=== PATIENT | female | born 1985 | race Hispanic/Latino ===

== ENCOUNTER 2020-04-15 16:07 | Inpatient (IN) | payer BC ==
[~2020-04-15] VITALS: Ht 149.9 cm; Wt 81.6 kg
[2020-04-15] MEDS ORDERED: ONDANSETRON HCL INJ 2MG/ML 2ML 2 MG/ML VIAL IV STA (16:15)
[2020-04-15] MEDS ORDERED: PANTOPRAZOLE 40 MG 10ML VIAL IV STA (16:15)
[2020-04-15] MEDS ORDERED: SODIUM CHLORIDE 0.9% 1000ML 1,000 ML IV STA (16:15)
[2020-04-15] MEDS ORDERED: HYDROMORPHONE 1MG/1ML INJ IV STA (16:15)
[2020-04-15 16:40] LABS: BASOPHILS # (AUTO) 0.1 (0.0-0.1); BASOPHILS % 0.3 % (0.0-1.0); EOSINOPHILS # (AUTO) 0.1 (0.0-0.4); EOSINOPHILS % 0.5 % (0.0-6.0); HEMATOCRIT 34.9 % (34.2-44.1); LYMPHOCYTES # (AUTO) 5.4 (1.0-3.2); LYMPHOCYTES % 24.8 % (18.0-39.1); MEAN CORPUSCULAR VOLUME 70.5 fL (81-99); MONOCYTES # (AUTO) 0.8 (0.2-0.8); MONOCYTES % 3.5 % (4.4-11.3); NEUTROPHILS # (AUTO) 15.2 (2.1-6.9); NEUTROPHILS % 70.1 % (38.7-80.0); PLATELET COUNT 368 x10e3/uL (140-360); RED BLOOD COUNT 4.95 x10e6/uL (3.6-5.1); RED CELL DISTRIBUTION WIDTH 17.1 % (11.7-14.4)
[2020-04-15 17:15] LABS: ALBUMIN 3.8 g/dL (3.5-5.0); ALBUMIN/GLOBULIN RATIO 0.5 (0.8-2.0); ALKALINE PHOSPHATASE 57 IU/L (40-150); AMYLASE 148 U/L (25-125); BLOOD UREA NITROGEN 5 mg/dL (7-26); BUN/CREATININE RATIO 7 (6-25); CALCIUM 8.7 mg/dL (8.4-10.2); CHLORIDE 95 mmol/L (98-107); CREATININE, SERUM 0.75 mg/dL (0.57-1.11); EST GLOMERULAR FILTRATION RATE > 60 ML/MIN (60-); GLUCOSE 249 mg/dL (74-118); LIPASE 508 U/L (8-78); MAGNESIUM 1.5 MG/DL (1.3-2.1); POTASSIUM 3.4 mmol/L (3.5-5.1); SODIUM 125 mmol/L (136-145)
[2020-04-15 17:31] LABS: CHOL/HDL RATIO 25.4 (3.0-3.6); CHOLESTEROL 407 MD/DL (0-199); HDL CHOLESTEROL 16 MG/DL (40-60)
[2020-04-15 17:39] LABS: TRIGLYCERIDES 5107 MG/DL (0-149)
[2020-04-15 17:41] LABS: ALANINE AMINOTRANSFERASE 54 IU/L (0-55)
[2020-04-15 17:53] LABS: ANION GAP 17.4 mmol/L (8-16); CARBON DIOXIDE 16 mmol/L (22-29)
[2020-04-15] MEDS ORDERED: SODIUM CHLORIDE 0.9% 50ML 50 ML ONE (18:25)
[2020-04-15] MEDS ORDERED: IOPAMIDOL 370 MG/ML 200 ML INFUS..BTL INJ ONE (18:26)
[2020-04-15 20:40] LABS: HEMOGLOBIN 10.9 g/dL (12.0-16.0)
[2020-04-15 20:41] LABS: MEAN CORPUSCULAR HEMOGLOBIN 21.8 pg (28-32)
[2020-04-15] MEDS ORDERED: KETOROLAC TROMETHAMINE 30 MG/ML VIAL IV STA (21:59)
[2020-04-15] MEDS ORDERED: PIPER-TAZ 3.375 GM 50 ML IV SCH (22:00)
[2020-04-15] MEDS ORDERED: MAGNESIUM SULF 1GRAM/DEXTROSE 100 ML IV PRN (22:00)
[2020-04-15] MEDS ORDERED: POTASSIUM CHLORIDE 20MEQ/100ML 200 ML IV PRN (22:00)
[2020-04-15] MEDS ORDERED: PIPERACILLIN/TAZOBAC 3.375 GM in SODIUM CHLORIDE 0.9% 50ML 50 ML IV SCH (22:00)
[2020-04-15] MEDS ORDERED: ACETAMINOPHEN 325 MG TAB PO ONE (22:00)
[2020-04-15] MEDS ORDERED: KETOROLAC TROMETHAMINE 30 MG/ML VIAL ONE (22:06)
[2020-04-15] MEDS ORDERED: ACETAMINOPHEN 325 MG TAB ONE (22:08)
[2020-04-15] MEDS ORDERED: PIPERACILLIN/TAZOBAC 3.375 GM VIAL ONE (22:13)
[2020-04-15 22:47] LABS: CREATINE KINASE MB 0.4 ng/mL (0-5.0)
[2020-04-15 23:04] LABS: ANION GAP 13.4 mmol/L (8-16); BLOOD UREA NITROGEN 8 mg/dL (8-26); CARBON DIOXIDE 22 mmol/L (22-32); CHLORIDE 101 mmol/L (101-111); POTASSIUM 4.4 mmol/L (3.6-5.1); SODIUM 132 mmol/L (136-144)
[2020-04-15 23:05] LABS: BUN/CREATININE RATIO 27 (6-25); CREATININE, SERUM 0.3 mg/dL (0.6-1.1); EST GLOMERULAR FILTRATION RATE > 60 ML/MIN (60-); GLUCOSE 275 mg/dL (74-118)
[2020-04-15 23:20] LABS: CALCIUM 8.1 mg/dL (8.4-10.2); MAGNESIUM 1.7 MG/DL (1.3-2.1)
[2020-04-16] MEDS ORDERED: PIPER-TAZ 3.375 GM 50 ML IV SCH
[2020-04-16] MEDS ORDERED: INSULIN REGULAR, HUMAN 100 UNIT/1 ML 3ML VIAL ONE (00:13)
[2020-04-16] MEDS ORDERED: SODIUM CHLORIDE 0.9% 100 ML ONE (00:14)
[2020-04-16] MEDS: SODIUM CHLORIDE 0.9% 1000ML 1,000 ML IV SCH ×3 (00:20→06:08)
[2020-04-16] MEDS: INSULIN REGULAR, HUMAN 3ML VL 300 UNIT in SODIUM CHLORIDE 0.9% 300 ML IV SCH ×4 (00:30→04:31)
[2020-04-16] MEDS ORDERED: ONDANSETRON HCL INJ 2MG/ML 2ML 2 MG/ML VIAL ONE (00:39)
[2020-04-16] MEDS: ONDANSETRON HCL INJ 2MG/ML 2ML 2 MG/ML VIAL IV PRN ×2 (00:40→07:31)
[2020-04-16] MEDS: HYDROMORPHONE 1MG/1ML INJ IV PRN ×6 (00:41→21:20)
[2020-04-16] MEDS ORDERED: FENOFIBRATE 145 MG TAB PO STA (00:50)
[2020-04-16 00:56] LABS: CLARITY,URINE SL CLOUDY (CLEAR); COLOR,URINE YELLOW (YELLOW); LEUKOCYTE ESTERASE ,URINE NEGATIVE (NEGATIVE); NITRITE,URINE NEGATIVE (NEGATIVE); PROTEIN,URINE DIPSTICK 1+ (NEGATIVE)
[2020-04-16 00:57] LABS: KETONES,URINE 3+ (NEGATIVE); URINE UROBILINOGEN 0.2 mg/dL (0.2 - 1)
[2020-04-16 01:12] LABS: BACTERIA,URINE MANY /HPF; EPITHELIAL CELLS,URINE MANY /LPF; WBC,URINE (MAN) 21-50 /HPF (0-5)
[2020-04-16] MEDS ORDERED: KETOROLAC TROMETHAMINE 30 MG/ML VIAL ONE (03:31)
[2020-04-16] MEDS: DEXTROSE 5%/0.45% SOD CHL 1,000 ML IV SCH ×3 (04:30→17:29)
[2020-04-16] MEDS: PIPERACILLIN/TAZOBAC 3.375 GM in SODIUM CHLORIDE 0.9% 50ML 50 ML IV SCH ×4 (04:30→18:20)
[2020-04-16 04:40] LABS: BLOOD UREA NITROGEN 8 mg/dL (7-26); BUN/CREATININE RATIO 11 (6-25); CALCIUM 7.4 mg/dL (8.4-10.2); CARBON DIOXIDE 12 mmol/L (22-29); CHLORIDE 104 mmol/L (98-107); CREATININE, SERUM 0.75 mg/dL (0.57-1.11); EST GLOMERULAR FILTRATION RATE > 60 ML/MIN (60-); GLUCOSE 225 mg/dL (74-118); MAGNESIUM 1.7 MG/DL (1.3-2.1)
[2020-04-16 04:45] LABS: SODIUM 133 mmol/L (136-145)
[2020-04-16 07:58] LABS: ALANINE AMINOTRANSFERASE 42 IU/L (0-55); ALBUMIN/GLOBULIN RATIO 0.8 (0.8-2.0); ALKALINE PHOSPHATASE 54 IU/L (40-150); ANION GAP 17.7 mmol/L (8-16); BLOOD UREA NITROGEN 9 mg/dL (7-26); BUN/CREATININE RATIO 13 (6-25); CALCIUM 7.3 mg/dL (8.4-10.2); CARBON DIOXIDE 15 mmol/L (22-29); CHLORIDE 107 mmol/L (98-107); CREATININE, SERUM 0.68 mg/dL (0.57-1.11); EST GLOMERULAR FILTRATION RATE > 60 ML/MIN (60-); GLUCOSE 181 mg/dL (74-118); SODIUM 137 mmol/L (136-145)
[2020-04-16 08:03] LABS: POTASSIUM 2.7 mmol/L (3.5-5.1)
[2020-04-16] MEDS ORDERED: POTASSIUM CHLORIDE 20MEQ/100ML 200 ML IV PRN (08:30)
[2020-04-16 08:55] LABS: MAGNESIUM 1.6 MG/DL (1.3-2.1)
[2020-04-16] MEDS ORDERED: FENOFIBRATE 145 MG TAB PO SCH (09:00)
[2020-04-16 09:03] LABS: BASOPHILS % 0.2 % (0.0-1.0); EOSINOPHILS % 0.1 % (0.0-6.0); HEMATOCRIT 34.1 % (34.2-44.1); HEMOGLOBIN 11.2 g/dL (12.0-16.0); LYMPHOCYTES # (AUTO) 2.3 (1.0-3.2); LYMPHOCYTES % 13.6 % (18.0-39.1); MEAN CORPUSCULAR HEMOGLOBIN 23.6 pg (28-32); MEAN CORPUSCULAR HGB CONC 32.8 g/dL (31-35); MEAN CORPUSCULAR VOLUME 71.9 fL (81-99); MONOCYTES # (AUTO) 0.7 (0.2-0.8); MONOCYTES % 4.4 % (4.4-11.3); NEUTROPHILS # (AUTO) 13.6 (2.1-6.9); NEUTROPHILS % 81.2 % (38.7-80.0); PLATELET COUNT 336 x10e3/uL (140-360); RED BLOOD COUNT 4.74 x10e6/uL (3.6-5.1); RED CELL DISTRIBUTION WIDTH 17.8 % (11.7-14.4)
[2020-04-16] MEDS ORDERED: LACTATED RINGER'S 1,000 ML INJ SCH (09:15)
[2020-04-16] MEDS ORDERED: LACTATED RINGER'S 1,000 ML ONE (09:19)
[2020-04-16 14:32] LABS: ANION GAP 10.1 mmol/L (8-16); BLOOD UREA NITROGEN 10 mg/dL (7-26); BUN/CREATININE RATIO 17 (6-25); CALCIUM 7.2 mg/dL (8.4-10.2); CARBON DIOXIDE 20 mmol/L (22-29); CHLORIDE 110 mmol/L (98-107); EST GLOMERULAR FILTRATION RATE > 60 ML/MIN (60-); GLUCOSE 150 mg/dL (74-118); MAGNESIUM 1.8 MG/DL (1.3-2.1); POTASSIUM 3.1 mmol/L (3.5-5.1); SODIUM 137 mmol/L (136-145)
[2020-04-16 16:11] LABS: FREE T4 (FREE THYROXINE) 0.94 ng/dL (0.8-1.8); THYROID STIMULATING HORMONE 0.599 uIU/mL (0.350-4.940)
[2020-04-16 19:00] LABS: ANION GAP 8.7 mmol/L (8-16); BLOOD UREA NITROGEN 8 mg/dL (7-26); BUN/CREATININE RATIO 14 (6-25); CALCIUM 7.1 mg/dL (8.4-10.2); CARBON DIOXIDE 21 mmol/L (22-29); CHLORIDE 110 mmol/L (98-107); CREATININE, SERUM 0.59 mg/dL (0.57-1.11); EST GLOMERULAR FILTRATION RATE > 60 ML/MIN (60-); GLUCOSE 126 mg/dL (74-118); MAGNESIUM 1.7 MG/DL (1.3-2.1); SODIUM 137 mmol/L (136-145)
[2020-04-16 19:05] LABS: POTASSIUM 2.7 mmol/L (3.5-5.1)
[2020-04-16] MEDS ORDERED: POTASSIUM CHLORIDE 20MEQ/100ML 200 ML IV ONE (21:15)
[2020-04-16] MEDS: POTASSIUM CHLORIDE 20MEQ/100ML 100 ML IV SCH (21:50)
[2020-04-16 21:57] LABS: ANION GAP 11.1 mmol/L (8-16); BLOOD UREA NITROGEN 7 mg/dL (7-26); BUN/CREATININE RATIO 11 (6-25); CALCIUM 7.2 mg/dL (8.4-10.2); CARBON DIOXIDE 20 mmol/L (22-29); CHLORIDE 108 mmol/L (98-107); CREATININE, SERUM 0.63 mg/dL (0.57-1.11); EST GLOMERULAR FILTRATION RATE > 60 ML/MIN (60-); GLUCOSE 204 mg/dL (74-118); MAGNESIUM 1.6 MG/DL (1.3-2.1); POTASSIUM 3.1 mmol/L (3.5-5.1); SODIUM 136 mmol/L (136-145)
[2020-04-16] MEDS ORDERED: ACETAMINOPHEN 325 MG TAB PO PRN (22:00)
[2020-04-17 00:24] LABS: ANION GAP 8.5 mmol/L (8-16); BLOOD UREA NITROGEN 7 mg/dL (7-26); BUN/CREATININE RATIO 12 (6-25); CALCIUM 7.3 mg/dL (8.4-10.2); CARBON DIOXIDE 21 mmol/L (22-29); CHLORIDE 108 mmol/L (98-107); EST GLOMERULAR FILTRATION RATE > 60 ML/MIN (60-); GLUCOSE 184 mg/dL (74-118); POTASSIUM 3.5 mmol/L (3.5-5.1); SODIUM 134 mmol/L (136-145)
[2020-04-17] MEDS: PIPERACILLIN/TAZOBAC 3.375 GM in SODIUM CHLORIDE 0.9% 50ML 50 ML IV SCH ×5 (00:30→23:29)
[2020-04-17] MEDS: LACTATED RINGER'S 1,000 ML INJ SCH ×3 (04:00→17:10)
[2020-04-17] MEDS ORDERED: LACTATED RINGER'S 1,000 ML ONE (04:02)
[2020-04-17] MEDS: POTASSIUM CHLORIDE 20MEQ/100ML 100 ML IV SCH (04:02)
[2020-04-17] MEDS: DEXTROSE 5%/0.45% SOD CHL 1,000 ML IV SCH (04:03)
[2020-04-17 04:21] LABS: BASOPHILS # (AUTO) 0.1 (0.0-0.1); BASOPHILS % 0.4 % (0.0-1.0); EOSINOPHILS # (AUTO) 0.2 (0.0-0.4); EOSINOPHILS % 0.9 % (0.0-6.0); HEMATOCRIT 28.5 % (34.2-44.1); HEMOGLOBIN 8.6 g/dL (12.0-16.0); LYMPHOCYTES # (AUTO) 3.2 (1.0-3.2); LYMPHOCYTES % 19.4 % (18.0-39.1); MEAN CORPUSCULAR HEMOGLOBIN 21.4 pg (28-32); MEAN CORPUSCULAR HGB CONC 30.2 g/dL (31-35); MEAN CORPUSCULAR VOLUME 70.9 fL (81-99); MONOCYTES # (AUTO) 0.8 (0.2-0.8); NEUTROPHILS % 73.5 % (38.7-80.0); PLATELET COUNT 288 x10e3/uL (140-360); RED BLOOD COUNT 4.02 x10e6/uL (3.6-5.1); RED CELL DISTRIBUTION WIDTH 17.6 % (11.7-14.4)
[2020-04-17 04:40] LABS: ALANINE AMINOTRANSFERASE 34 IU/L (0-55); ALBUMIN 2.3 g/dL (3.5-5.0); ALBUMIN/GLOBULIN RATIO 0.8 (0.8-2.0); ALKALINE PHOSPHATASE 48 IU/L (40-150); AMYLASE 51 U/L (25-125); ANION GAP 9.6 mmol/L (8-16); BLOOD UREA NITROGEN 6 mg/dL (7-26); BUN/CREATININE RATIO 10 (6-25); CALCIUM 7.4 mg/dL (8.4-10.2); CARBON DIOXIDE 22 mmol/L (22-29); CHLORIDE 110 mmol/L (98-107); CREATININE, SERUM 0.58 mg/dL (0.57-1.11); EST GLOMERULAR FILTRATION RATE > 60 ML/MIN (60-); GLUCOSE 154 mg/dL (74-118); LIPASE 110 U/L (8-78); POTASSIUM 3.6 mmol/L (3.5-5.1); SODIUM 138 mmol/L (136-145)
[2020-04-17 04:49] LABS: % IRON SATURATION 7 % (15-50); IRON 23 ug/dL (50-170); TOTAL IRON BINDING CAPACITY 323 ug/dL (261-478); TRANSFERRIN 231 mg/dL (180-382)
[2020-04-17] MEDS ORDERED: DEXTROSE 50% SYRINGE 50 ML IV PRN (06:45)
[2020-04-17] MEDS: INSULIN LISPRO 100 UNIT/1 ML 3ML VIAL SQ SCH ×4 (08:29→21:00)
[2020-04-17] MEDS ORDERED: IBUPROFEN 600 MG TAB PO STA (08:38)
[2020-04-17] MEDS ORDERED: IBUPROFEN 600 MG TAB ONE (08:40)
[2020-04-17] MEDS: FENOFIBRATE 145 MG TAB PO SCH (09:33)
[2020-04-17] MEDS ORDERED: BASAGLAR K100 UNIT/1 SQ (13:19)
[2020-04-17] MEDS ORDERED: PANTOPRAZOLE SO40 MG PO (13:19)
[2020-04-17] MEDS ORDERED: GLIPIZIDE5 MG PO (13:19)
[2020-04-17] MEDS ORDERED: ATORVASTATIN CA20 MG PO (13:19)
[2020-04-17] MEDS ORDERED: METFORMIN HCL1000 MG PO (13:19)
[2020-04-17] MEDS ORDERED: FENOFIBRATE160 MG PO (13:19)
[2020-04-17] MEDS ORDERED: HYDROCODONE/APAP 5MG-325MG TAB ONE (13:37)
[2020-04-17] MEDS ORDERED: MORPHINE SULFATE INJ 2 MG/ML SYR IV STA (14:39)
[2020-04-17] MEDS ORDERED: MORPHINE SULFATE INJ 2 MG/ML SYR IV PRN (14:45)
[2020-04-17] MEDS ORDERED: MORPHINE SULFATE INJ 4 MG/ML INJ 1ML ONE (14:55)
[2020-04-17] MEDS: MORPHINE SULFATE INJ 4 MG/ML INJ 1ML IV PRN ×2 (17:09→21:10)
[2020-04-17] MEDS: ONDANSETRON HCL INJ 2MG/ML 2ML 2 MG/ML VIAL IV PRN ×2 (17:09→21:10)
[2020-04-17] MEDS ORDERED: PIPERACILLIN/TAZOBAC 3.375 GM VIAL ONE ×2 (17:10→23:30)
[2020-04-17] MEDS ORDERED: SODIUM CHLORIDE 0.9% 50ML 50 ML ONE ×2 (17:11→23:31)
[2020-04-17 17:19] VITALS: BP 105/68
[2020-04-17 17:28] VITALS: BP 105/68
[2020-04-17 20:00] VITALS: BP 107/58
[2020-04-17] MEDS: INSULIN GLARGINE 100 UNITS/ML VIAL SQ SCH (21:00)
[2020-04-17 21:16] VITALS: BP 107/58
[2020-04-18] VITALS (8 sets, daily range): BP systolic 101–115; BP diastolic 63–78
[2020-04-18] MEDS: HYDROMORPHONE 1MG/1ML INJ IV PRN ×5 (00:32→14:25)
[2020-04-18] MEDS: PANTOPRAZOLE 40 MG 10ML VIAL IV SCH ×3 (00:32→16:41)
[2020-04-18] MEDS: LACTATED RINGER'S 1,000 ML INJ SCH ×3 (02:00→18:00)
[2020-04-18] MEDS: ONDANSETRON HCL INJ 2MG/ML 2ML 2 MG/ML VIAL IV PRN ×2 (03:38→10:29)
[2020-04-18 05:22] LABS: BASOPHILS # (AUTO) 0.1 (0.0-0.1); BASOPHILS % 0.3 % (0.0-1.0); EOSINOPHILS # (AUTO) 0.3 (0.0-0.4); EOSINOPHILS % 1.9 % (0.0-6.0); HEMATOCRIT 24.8 % (34.2-44.1); HEMOGLOBIN 7.4 g/dL (12.0-16.0); LYMPHOCYTES # (AUTO) 2.7 (1.0-3.2); LYMPHOCYTES % 17.3 % (18.0-39.1); MEAN CORPUSCULAR HEMOGLOBIN 21.4 pg (28-32); MEAN CORPUSCULAR HGB CONC 29.8 g/dL (31-35); MEAN CORPUSCULAR VOLUME 71.7 fL (81-99); MONOCYTES # (AUTO) 0.9 (0.2-0.8); MONOCYTES % 5.5 % (4.4-11.3); NEUTROPHILS # (AUTO) 11.5 (2.1-6.9); NEUTROPHILS % 73.9 % (38.7-80.0); PLATELET COUNT 275 x10e3/uL (140-360); RED BLOOD COUNT 3.46 x10e6/uL (3.6-5.1); RED CELL DISTRIBUTION WIDTH 18.2 % (11.7-14.4)
[2020-04-18] MEDS: PIPERACILLIN/TAZOBAC 3.375 GM in SODIUM CHLORIDE 0.9% 50ML 50 ML IV SCH ×4 (05:22→23:54)
[2020-04-18] MEDS ORDERED: PIPERACILLIN/TAZOBAC 3.375 GM VIAL ONE ×4 (05:24→23:38)
[2020-04-18] MEDS ORDERED: SODIUM CHLORIDE 0.9% 50ML 50 ML ONE ×4 (05:25→23:38)
[2020-04-18 05:47] LABS: ANION GAP 13.6 mmol/L (8-16); BLOOD UREA NITROGEN 6 mg/dL (7-26); BUN/CREATININE RATIO 11 (6-25); CALCIUM 8.4 mg/dL (8.4-10.2); CARBON DIOXIDE 21 mmol/L (22-29); CHLORIDE 107 mmol/L (98-107); CREATININE, SERUM 0.56 mg/dL (0.57-1.11); EST GLOMERULAR FILTRATION RATE > 60 ML/MIN (60-); GLUCOSE 154 mg/dL (74-118); MAGNESIUM 1.9 MG/DL (1.3-2.1); POTASSIUM 3.6 mmol/L (3.5-5.1); SODIUM 138 mmol/L (136-145)
[2020-04-18 05:49] LABS: AMYLASE 46 U/L (25-125); LIPASE 69 U/L (8-78)
[2020-04-18] MEDS: INSULIN LISPRO 100 UNIT/1 ML 3ML VIAL SQ SCH ×4 (07:30→21:00)
[2020-04-18] MEDS: FENOFIBRATE 145 MG TAB PO SCH (08:06)
[2020-04-18] MEDS: CYANOCOBALAMIN INJ 1,000 MCG/ML VIAL IM SCH (08:06)
[2020-04-18] MEDS ORDERED: PANTOPRAZOLE SOD 40 MG TABEC PO SCH (09:00)
[2020-04-18] MEDS: IRON SUCROSE 100 MG in SODIUM CHLORIDE 0.9% 100 ML 100 ML IV SCH (11:20)
[2020-04-18] MEDS ORDERED: MAGNESIUM HYDROXIDE 30 ML UDC PO ONE ×4 (16:00→19:30)
[2020-04-18 18:19] LABS: BASOPHILS % 0.3 % (0.0-1.0); EOSINOPHILS # (AUTO) 0.3 (0.0-0.4); EOSINOPHILS % 1.8 % (0.0-6.0); HEMATOCRIT 25.6 % (34.2-44.1); HEMOGLOBIN 7.6 g/dL (12.0-16.0); LYMPHOCYTES % 19.7 % (18.0-39.1); MEAN CORPUSCULAR HEMOGLOBIN 21.7 pg (28-32); MEAN CORPUSCULAR HGB CONC 29.7 g/dL (31-35); MEAN CORPUSCULAR VOLUME 72.9 fL (81-99); MONOCYTES # (AUTO) 0.8 (0.2-0.8); MONOCYTES % 5.2 % (4.4-11.3); NEUTROPHILS # (AUTO) 10.7 (2.1-6.9); NEUTROPHILS % 70.6 % (38.7-80.0); PLATELET COUNT 314 x10e3/uL (140-360); RED BLOOD COUNT 3.51 x10e6/uL (3.6-5.1); RED CELL DISTRIBUTION WIDTH 18.2 % (11.7-14.4)
[2020-04-18] MEDS ORDERED: MAGNESIUM HYDROXIDE 30 ML UDC PO NR (19:00)
[2020-04-18] MEDS: INSULIN GLARGINE 100 UNITS/ML VIAL SQ SCH (21:00)
[2020-04-18] MEDS: HYDROCODONE/APAP 5MG-325MG TAB PO PRN (21:05)
[2020-04-19] VITALS (7 sets, daily range): BP systolic 100–113; BP diastolic 64–82
[2020-04-19] MEDS ORDERED: PIPERACILLIN/TAZOBAC 3.375 GM VIAL ONE ×4 (05:32→23:34)
[2020-04-19] MEDS: PIPERACILLIN/TAZOBAC 3.375 GM in SODIUM CHLORIDE 0.9% 50ML 50 ML IV SCH ×3 (05:48→17:00)
[2020-04-19] MEDS: LACTATED RINGER'S 1,000 ML INJ SCH ×3 (05:48→20:55)
[2020-04-19] MEDS: HYDROCODONE/APAP 5MG-325MG TAB PO PRN (06:16)
[2020-04-19 07:05] LABS: BASOPHILS # (AUTO) 0.1 (0.0-0.1); BASOPHILS % 0.4 % (0.0-1.0); EOSINOPHILS # (AUTO) 0.4 (0.0-0.4); EOSINOPHILS % 2.7 % (0.0-6.0); HEMATOCRIT 25.2 % (34.2-44.1); HEMOGLOBIN 7.6 g/dL (12.0-16.0); LYMPHOCYTES # (AUTO) 3.6 (1.0-3.2); LYMPHOCYTES % 25.3 % (18.0-39.1); MEAN CORPUSCULAR HEMOGLOBIN 21.8 pg (28-32); MEAN CORPUSCULAR HGB CONC 30.2 g/dL (31-35); MEAN CORPUSCULAR VOLUME 72.2 fL (81-99); NEUTROPHILS # (AUTO) 8.6 (2.1-6.9); NEUTROPHILS % 60.2 % (38.7-80.0); PLATELET COUNT 322 x10e3/uL (140-360); RED BLOOD COUNT 3.49 x10e6/uL (3.6-5.1); RED CELL DISTRIBUTION WIDTH 18.1 % (11.7-14.4)
[2020-04-19 07:29] LABS: ANION GAP 13.1 mmol/L (8-16); BLOOD UREA NITROGEN 7 mg/dL (7-26); BUN/CREATININE RATIO 13 (6-25); CALCIUM 8.1 mg/dL (8.4-10.2); CARBON DIOXIDE 23 mmol/L (22-29); CHLORIDE 104 mmol/L (98-107); CREATININE, SERUM 0.56 mg/dL (0.57-1.11); EST GLOMERULAR FILTRATION RATE > 60 ML/MIN (60-); GLUCOSE 183 mg/dL (74-118); POTASSIUM 3.1 mmol/L (3.5-5.1); SODIUM 137 mmol/L (136-145)
[2020-04-19] MEDS: CYANOCOBALAMIN INJ 1,000 MCG/ML VIAL IM SCH (08:25)
[2020-04-19] MEDS: FENOFIBRATE 145 MG TAB PO SCH (08:25)
[2020-04-19] MEDS: PANTOPRAZOLE 40 MG 10ML VIAL IV SCH ×2 (08:25→16:33)
[2020-04-19] MEDS: INSULIN LISPRO 100 UNIT/1 ML 3ML VIAL SQ SCH ×5 (08:31→21:00)
[2020-04-19] MEDS ORDERED: POTASSIUM CHLORIDE 20 MEQ TAB CR PO STA (08:40)
[2020-04-19] MEDS ORDERED: SODIUM CHLORIDE 0.9% 50ML 50 ML ONE ×2 (10:10→16:21)
[2020-04-19] MEDS: IRON SUCROSE 100 MG in SODIUM CHLORIDE 0.9% 100 ML 100 ML IV SCH (10:43)
[2020-04-19] MEDS ORDERED: POTASSIUM CHLORIDE 20 MEQ TAB CR PO ONE (11:00)
[2020-04-19 18:09] LABS: ANION GAP 13.8 mmol/L (8-16); BLOOD UREA NITROGEN 6 mg/dL (7-26); BUN/CREATININE RATIO 10 (6-25); CALCIUM 8.7 mg/dL (8.4-10.2); CARBON DIOXIDE 23 mmol/L (22-29); CHLORIDE 104 mmol/L (98-107); CREATININE, SERUM 0.63 mg/dL (0.57-1.11); EST GLOMERULAR FILTRATION RATE > 60 ML/MIN (60-); GLUCOSE 215 mg/dL (74-118); POTASSIUM 3.8 mmol/L (3.5-5.1); SODIUM 137 mmol/L (136-145)
[2020-04-19] MEDS ORDERED: INSULIN GLARGINE 100 UNITS/ML VIAL SQ SCH ×2 (21:00)
[2020-04-20] VITALS: BP 119/77
[2020-04-20] MEDS: PIPERACILLIN/TAZOBAC 3.375 GM in SODIUM CHLORIDE 0.9% 50ML 50 ML IV SCH ×2 (00:18→05:09)
[2020-04-20 04:00] VITALS: BP 106/69
[2020-04-20] MEDS ORDERED: PIPERACILLIN/TAZOBAC 3.375 GM VIAL ONE (05:01)
[2020-04-20 05:53] LABS: BASOPHILS # (AUTO) 0.1 (0.0-0.1); BASOPHILS % 0.6 % (0.0-1.0); EOSINOPHILS # (AUTO) 0.4 (0.0-0.4); HEMATOCRIT 26.5 % (34.2-44.1); HEMOGLOBIN 8.1 g/dL (12.0-16.0); LYMPHOCYTES # (AUTO) 3.3 (1.0-3.2); LYMPHOCYTES % 24.5 % (18.0-39.1); MEAN CORPUSCULAR HEMOGLOBIN 22.1 pg (28-32); MEAN CORPUSCULAR HGB CONC 30.6 g/dL (31-35); MEAN CORPUSCULAR VOLUME 72.2 fL (81-99); MONOCYTES # (AUTO) 0.8 (0.2-0.8); MONOCYTES % 6.3 % (4.4-11.3); NEUTROPHILS # (AUTO) 7.5 (2.1-6.9); NEUTROPHILS % 56.4 % (38.7-80.0); PLATELET COUNT 347 x10e3/uL (140-360); RED BLOOD COUNT 3.67 x10e6/uL (3.6-5.1); RED CELL DISTRIBUTION WIDTH 17.5 % (11.7-14.4)
[2020-04-20 06:14] LABS: ALANINE AMINOTRANSFERASE 41 IU/L (0-55); ALBUMIN 2.5 g/dL (3.5-5.0); ALBUMIN/GLOBULIN RATIO 0.8 (0.8-2.0); ALKALINE PHOSPHATASE 73 IU/L (40-150); AMYLASE 88 U/L (25-125); ANION GAP 12.7 mmol/L (8-16); BLOOD UREA NITROGEN 6 mg/dL (7-26); BUN/CREATININE RATIO 10 (6-25); CALCIUM 8.6 mg/dL (8.4-10.2); CARBON DIOXIDE 23 mmol/L (22-29); CHLORIDE 106 mmol/L (98-107); CREATININE, SERUM 0.59 mg/dL (0.57-1.11); EST GLOMERULAR FILTRATION RATE > 60 ML/MIN (60-); GLUCOSE 198 mg/dL (74-118); LIPASE 183 U/L (8-78); POTASSIUM 3.7 mmol/L (3.5-5.1); SODIUM 138 mmol/L (136-145)
[2020-04-20] MEDS: LACTATED RINGER'S 1,000 ML INJ SCH (06:43)
[2020-04-20 07:45] VITALS: BP 106/69
[2020-04-20 08:09] VITALS: BP 111/72
[2020-04-20 08:21] LABS: BAND NEUTROPHILS % (MANUAL) 6 %; EOSINOPHILS % (MANUAL) 2 % (0-7); LYMPHOCYTES % (MANUAL) 21 % (19-48); MONOCYTES % (MANUAL) 5 % (3.4-9.0); NEUTROPHILS % (MANUAL) 66 % (40-74)
[2020-04-20] MEDS: CYANOCOBALAMIN INJ 1,000 MCG/ML VIAL IM SCH (09:10)
[2020-04-20] MEDS: PANTOPRAZOLE 40 MG 10ML VIAL IV SCH (09:10)
[2020-04-20] MEDS: FENOFIBRATE 145 MG TAB PO SCH (09:10)
[2020-04-20] MEDS: IRON SUCROSE 100 MG in SODIUM CHLORIDE 0.9% 100 ML 100 ML IV SCH (09:11)
[2020-04-20] MEDS: INSULIN LISPRO 100 UNIT/1 ML 3ML VIAL SQ SCH ×5 (09:20→16:49)
[2020-04-20 11:14] VITALS: BP 107/70
[2020-04-20 15:40] VITALS: BP 108/71
[2020-04-20] MEDS ORDERED: INSULIN LISPRO 100 UNIT/1 ML 3ML VIAL SQ SCH (16:30)
== END 2020-04-20 18:14 | disposition home or self-care (01) | DRG 871 ==
LOC: ER 18:46 → ERHOLD 23:38 → MED/SURG2 04-17 16:46
PROVIDERS: ADMIT Internal Medicine; ATTEND Internal Medicine
PROC: 02HV33Z Insertion of Infusion Device into Superior Vena Cava, Percutaneous Approach (ICD-10-PCS; principal; 2020-04-16)
PROC: B548ZZA Ultrasonography of Superior Vena Cava, Guidance (ICD-10-PCS; 2020-04-16)
DX: A41.9 Sepsis, unspecified organism (principal); E11.10 Type 2 diabetes mellitus with ketoacidosis without coma; K85.90 Acute pancreatitis without necrosis or infection, unspecified; E87.2 Acidosis; R65.20 Severe sepsis without septic shock; E78.1 Pure hyperglyceridemia; E87.6 Hypokalemia; D64.9 Anemia, unspecified; E78.00 Pure hypercholesterolemia, unspecified; Z90.49 Acquired absence of other specified parts of digestive tract; E66.9 Obesity, unspecified; D50.9 Iron deficiency anemia, unspecified; Z68.36 Body mass index [BMI] 36.0-36.9, adult; E78.5 Hyperlipidemia, unspecified
CPT/HCPCS: 36415; 36569; 71045; 74177; 80048; 80053; 80061; 81001; 82150; 82270; 82550; 82553; 82607; 82746; 82948; 83036; 83540; 83605; 83690; 83735; 84439; 84443; 84466; 84478; 84484; 84702; 85025; 85045; 87040; 87086; 96374; 96375; 99285; J1170; J1756; J1815; J1817; J1885; J2270; J2405; J2543; J3420; J3480; J7030; J7050; J7121; Q9967; U0002

== ENCOUNTER 2021-08-12 22:21 | Emergency (ER) | payer SELFPAY ==
[~2021-08-12] VITALS: Ht 149.9 cm; Wt 81.6 kg
[~2021-08-12 22:21] MED LIST: ATORVASTATIN CA20 MG PO; BASAGLAR K100 UNIT/1 SQ; FENOFIBRATE160 MG PO; GLIPIZIDE5 MG PO; METFORMIN HCL1000 MG PO; PANTOPRAZOLE SO40 MG PO
[2021-08-12] MEDS ORDERED: SODIUM CHLORIDE 0.9% 1000ML 1,000 ML IV STA (22:25)
[2021-08-12] MEDS ORDERED: ONDANSETRON HCL INJ 2MG/ML 2ML 2 MG/ML VIAL IV STA (22:29)
[2021-08-12 22:56] LABS: BASOPHILS # (AUTO) 0.1 (0.0-0.1); BASOPHILS % 0.4 % (0.0-1.0); EOSINOPHILS # (AUTO) 0.2 (0.0-0.4); EOSINOPHILS % 1.6 % (0.0-6.0); HEMATOCRIT 43.2 % (34.2-44.1); HEMOGLOBIN 14.7 g/dL (12.0-16.0); LYMPHOCYTES # (AUTO) 5.2 (1.0-3.2); LYMPHOCYTES % 39.3 % (18.0-39.1); MEAN CORPUSCULAR HEMOGLOBIN 30.6 pg (28-32); MONOCYTES # (AUTO) 0.7 (0.2-0.8); MONOCYTES % 5.2 % (4.4-11.3); NEUTROPHILS % 52.9 % (38.7-80.0); PLATELET COUNT 228 x10e3/uL (140-360); RED CELL DISTRIBUTION WIDTH 12.5 % (11.7-14.4)
[2021-08-12] MEDS ORDERED: Morphine 4mg INJECTION 4 MG/ML INJ IV ONE (23:00)
[2021-08-12] MEDS ORDERED: Morphine 2mg Syringe 2 MG/ML SYR ONE (23:04)
[2021-08-12 23:13] LABS: ALBUMIN 3.8 g/dL (3.5-5.0); ALBUMIN/GLOBULIN RATIO 0.9 (0.8-2.0); CREATININE, SERUM 0.79 mg/dL (0.57-1.11)
[2021-08-12 23:22] LABS: AMPHETAMINES SCREEN,URINE NEGATIVE (NEGATIVE); BENZODIAZEPINES SCREEN,URINE NEGATIVE (NEGATIVE); CLARITY,URINE CLEAR (CLEAR); COLOR,URINE YELLOW (YELLOW); LEUKOCYTE ESTERASE ,URINE NEGATIVE (NEGATIVE); NITRITE,URINE NEGATIVE (NEGATIVE); PHENCYCLIDINE SCREEN,URINE NEGATIVE (NEGATIVE)
[2021-08-12 23:22] LABS: ABG HCO3 24 mmol/L (22-26); ABG PCO2 32 mmHg (35-45); ABG PH 7.48 (7.35-7.45); ABG PO2 105 mmHg (80-105); ABG TCO2 25
[2021-08-12 23:23] LABS: BACTERIA,URINE FEW /HPF; EPITHELIAL CELLS,URINE FEW /LPF; KETONES,URINE NEGATIVE (NEGATIVE); PROTEIN,URINE DIPSTICK NEGATIVE (NEGATIVE); RBC,URINE 0-5 /HPF (0-5); URINE UROBILINOGEN 0.2 mg/dL (0.2 - 1); WBC,URINE (MAN) 0-5 /HPF (0-5)
[2021-08-12 23:27] LABS: YEAST,URINE FEW
[2021-08-13] MEDS ORDERED: IOPAMIDOL 370 MG/ML 100 ML INFUS..BTL INJ ONE (00:17)
[2021-08-13] MEDS ORDERED: ULTRAM 50MG50 MG PO (01:28)
[2021-08-13] MEDS ORDERED: ONDANSETRON ODT4 MG PO (01:28)
[2021-08-13 01:37] VITALS: BP 110/68
== END 2021-08-13 01:39 | disposition home or self-care (01) ==
LOC: ER 22:24
DX: R10.12 Left upper quadrant pain (principal); E11.9 Type 2 diabetes mellitus without complications; Z79.4 Long term (current) use of insulin; Z79.84 Long term (current) use of oral hypoglycemic drugs; E78.5 Hyperlipidemia, unspecified; R16.0 Hepatomegaly, not elsewhere classified; K76.0 Fatty (change of) liver, not elsewhere classified; Z20.822 Contact with and (suspected) exposure to COVID-19; Z79.899 Other long term (current) drug therapy; Z90.49 Acquired absence of other specified parts of digestive tract
CPT/HCPCS: 36415; 36600; 74177; 80053; 80307; 81001; 81025; 82805; 83690; 85025; 99284; J2270; J2405; J7030; Q9967; U0002

== ENCOUNTER 2024-02-02 22:14 | Emergency (ER) | payer BC ==
[~2024-02-02] VITALS: Ht 149.9 cm; Wt 61.2 kg
[~2024-02-02 22:14] MED LIST changes: +ONDANSETRON ODT4 MG PO; +ONDANSETRON ODT4 MG SL; +ULTRAM 50MG50 MG PO
[2024-02-02 22:15] VITALS: TEMP 97.6
[2024-02-02 22:46] LABS: BASOPHILS # (AUTO) 0.1 (0.0-0.1); BASOPHILS % 0.4 % (0.0-1.0); EOSINOPHILS # (AUTO) 0.1 (0.0-0.4); EOSINOPHILS % 1.2 % (0.0-6.0); HEMATOCRIT 46.3 % (34.2-44.1); HEMOGLOBIN 14.6 g/dL (12.0-16.0); LYMPHOCYTES # (AUTO) 3.9 (1.0-3.2); MEAN CORPUSCULAR HEMOGLOBIN 30.8 pg (28-32); MEAN CORPUSCULAR HGB CONC 31.5 g/dL (31-35); MEAN CORPUSCULAR VOLUME 97.7 fL (81-99); MONOCYTES # (AUTO) 0.8 (0.2-0.8); MONOCYTES % 7.3 % (4.4-11.3); NEUTROPHILS # (AUTO) 6.4 (2.1-6.9); NEUTROPHILS % 56.8 % (38.7-80.0); PLATELET COUNT 230 x10e3/uL (140-360); RED BLOOD COUNT 4.74 x10e6/uL (3.6-5.1); WHITE BLOOD COUNT 11.34 x10e3/uL (4.8-10.8)
[2024-02-02] MEDS: SODIUM CHLORIDE 0.9% 1000ML 1,000 ML IV ONE (22:48)
[2024-02-02] MEDS: KETOROLAC TROMETHAMINE 30 MG/ML VIAL IV STA (22:48)
[2024-02-02] MEDS: ONDANSETRON HCL INJ 2MG/ML 2ML 2 MG/ML VIAL IV STA (22:48)
[2024-02-02 23:04] LABS: CLARITY,URINE CLEAR (CLEAR); COLOR,URINE YELLOW (YELLOW); LEUKOCYTE ESTERASE ,URINE NEGATIVE (NEGATIVE); PH,URINE 6 (5 - 7)
[2024-02-02 23:05] LABS: BILIRUBIN,URINE NEGATIVE (NEGATIVE); GLUCOSE, URINE >=1000 (NEGATIVE); KETONES,URINE NEGATIVE (NEGATIVE); NITRITE,URINE NEGATIVE (NEGATIVE); PROTEIN,URINE DIPSTICK NEGATIVE (NEGATIVE); URINE UROBILINOGEN 0.2 mg/dL (0.2 - 1)
[2024-02-02 23:08] LABS: ALBUMIN 4.4 g/dL (3.5-5.0); ALBUMIN/GLOBULIN RATIO 1.5 (0.8-2.0); ANION GAP 13.5 mmol/L (8-16); BILIRUBIN,TOTAL 1.3 mg/dL (0.2-1.2); CREATININE, SERUM 0.72 mg/dL (0.57-1.11); POTASSIUM 3.5 mmol/L (3.5-5.1); TOTAL PROTEIN 7.4 g/dL (6.5-8.1)
[2024-02-02 23:24] LABS: BACTERIA,URINE MANY /HPF; EPITHELIAL CELLS,URINE MODERATE /LPF; RBC,URINE 0-5 /HPF (0-5)
[2024-02-02] MEDS ORDERED: IOPAMIDOL 370 MG/ML 100 ML INFUS..BTL INJ ONE (23:28)
[2024-02-03] VITALS: RESP 19
[2024-02-03] MEDS ORDERED: PANTOPRAZOLE SO40 MG PO (01:10)
[2024-02-03 01:15] VITALS: PULSE 82
[2024-02-03 01:19] VITALS: BP 94/66; O2SAT 99
== END 2024-02-03 01:20 | disposition home or self-care (01) ==
LOC: ER 22:20
DX: R10.31 Right lower quadrant pain (principal); R10.13 Epigastric pain; K29.70 Gastritis, unspecified, without bleeding; K21.9 Gastro-esophageal reflux disease without esophagitis; Z98.84 Bariatric surgery status
CPT/HCPCS: 36415; 74177; 80053; 81001; 81003; 83690; 85025; 99284; J1885; J2405; J2470; J7030; Q9967